=== PATIENT | female | born 1945 | race African-American/Black ===

== ENCOUNTER → 2017-02-03 | Outpatient (CLI) | payer MEDICARE ==
[~2017-02-03] MED LIST: OXYCODONE-ACETAMINOPHEN 5-325 MG TABLET ONE
--- NOTE | 2017-02-03 12:50 | RADIOLOGY REPORT (SQ) ---
EXAM DESCRIPTION: NM GASTRIC EMPTYING STUDY COMPLETED DATE/TIME: 02/03/2017 12:29 pm REASON FOR STUDY: DYSPEPSIA (R10.13) R10.13 EPIGASTRIC PAIN COMPARISON: None. RADIONUCLIDE AND DOSE: 2 millicuries Tc-99m Sulfur Colloid. The route of agent administration: Oral. TECHNIQUE: Serial images acquired to 4 hours with each image recorded over a 30 minute time frame. I mage intensity values plotted with respect to time with linear regression algorithm. LIMITATIONS: None. FINDINGS: Patient was observed for 4 hours. Gastric emptying at 30 minutes was 11.1 % Gastric emptying at 60 minutes was 22.3%. Gastric emptying at 90 minutes was 33.4%. Gastric emptying at 120 minutes was 44.5% Gastric emptying at 240 minutes was 89%. IMPRESSION: Mildly delayed gastric emptying. TECHNICAL DOCUMENTATION: JOB ID: [id number] [employer]- All Rights Reserved
== END ==
LOC: RAD 07:39
PROVIDERS: ATTEND Internal Medicine Gastroenterology
DX: R10.13 Epigastric pain (principal)
CPT/HCPCS: 78264; A9541

== ENCOUNTER 2018-02-14 06:36 | Emergency (ER) | payer MEDICARE ==
[2018-02-14 06:56] LABS: APPEARANCE,URINE CLEAR; BILIRUBIN,URINE NEGATIVE (NEGATIVE); COLOR,URINE STRAW; GLUCOSE, URINE >=500 mg/dL (NEGATIVE); KETONES,URINE 20 mg/dL (NEGATIVE); LEUKOCYTE ESTERASE,URINE NEGATIVE (NEGATIVE); NITRITE,URINE NEGATIVE (NEGATIVE); PROTEIN,URINE 30 mg/dL (NEGATIVE); URINE SPECIFIC GRAVITY 1.013; UROBILINOGEN,URINE NEGATIVE mg/dL (<2.0)
[2018-02-14 06:57] LABS: ABSOLUTE LYMPHOCYTES (AUTO) 1.2 10^3/uL (0.5-4.7); ABSOLUTE MONOCYTES (AUTO) 0.4 10^3/uL (0.1-1.4); ABSOLUTE NEUT (AUTO) 6.3 10^3/uL (1.7-8.2); BASOPHILS % (AUTO) 0.1 % (0-2); HEMATOCRIT 44.3 % (36.0-47.0); HEMOGLOBIN 14.3 g/dL (12.0-15.5); LYMPHOCYTES % (AUTO) 14.9 % (13-45); MEAN CORPUSCULAR HEMOGLOBIN 27.6 pg (27.0-33.4); MEAN CORPUSCULAR HGB CONC 32.4 g/dL (32.0-36.0); MEAN CORPUSCULAR VOLUME 85 fl (80-97); MONOCYTES % (AUTO) 4.6 % (3-13); PLATELET COUNT 190 10^3/uL (150-450); RED BLOOD COUNT 5.19 10^6/uL (3.72-5.28); RED CELL DISTRIBUTION WIDTH 15.3 % (11.5-14.0); SEGMENTED NEUTROPHILS % (AUTO) 80.4 % (42-78); TOTAL CELLS COUNTED % (AUTO) 100 %; WHITE BLOOD COUNT 7.8 10^3/uL (4.0-10.5)
[2018-02-14 07:21] LABS: ALANINE AMINOTRANSFERASE 26 U/L (9-52); ALBUMIN 4.5 g/dL (3.5-5.0); ALKALINE PHOSPHATASE 131 U/L (38-126); ANION GAP 15 (5-19); ASPARTATE AMINO TRANSFERASE 27 U/L (14-36); BILIRUBIN,DIRECT 0.2 mg/dL (0.0-0.4); BILIRUBIN,TOTAL 0.6 mg/dL (0.2-1.3); BLOOD UREA NITROGEN 21 mg/dL (7-20); CALCIUM 9.5 mg/dL (8.4-10.2); CARBON DIOXIDE 23 mmol/L (22-30); CHLORIDE 101 mmol/L (98-107); GLUCOSE 266 mg/dL (75-110); LIPASE 123.5 U/L (23-300); SODIUM 138.7 mmol/L (137-145); TOTAL PROTEIN 7.5 g/dL (6.3-8.2)
[2018-02-14] MEDS ORDERED: FENTANYL CITRATE INJ/PF 100 MCG/2 ML AMPUL IV ONE (07:23)
[2018-02-14] MEDS ORDERED: ONDANSETRON HCL INJ/PF 4 MG/2 ML SDV IV ONE (07:23)
--- NOTE | 2018-02-14 07:25 | ER Document Report ---
ED GI/ - General Chief Complaint: Abdominal Pain Stated Complaint: ABDOMINAL PAIN Time Seen by Provider: 02/14/18 07:07 Mode of Arrival: Ambulatory Information source: Patient Notes: Patient presents complaining of abdominal pain that started around 10 PM last night. Patient states the pain became more severe today and she started to have nausea and vomiting. Patient reports vomiting x3 times. Patient denies any fever or diarrhea. Patient does report some urinary frequency symptoms. Patient denies any recent illness cough shortness of breath or chest pain. TRAVEL OUTSIDE OF THE [place] IN LAST 30 DAYS: No - HPI Patient complains to provider of: Abdominal pain, Vomiting Onset: Yesterday Timing/Duration: Worse Quality of pain: Sharp Pain Level: 4 Location: Other - Generalized abdomen Vaginal bleeding (Compared to normal period): None Associated symptoms: Dysuria, Nausea, Vomiting. denies: Chest pain, Fever, Loss of appetite, Urinary hesitancy, Urinary frequency Exacerbated by: Denies Relieved by: Denies Similar symptoms previously: No Recently seen / treated by doctor: No - Related Data Allergies/Adverse Reactions: Penicillins Allergy (Unknown, Verified 02/14/18 07:04) Past Medical History - General Information source: Patient - Social History Smoking Status: Never Smoker Frequency of alcohol use: None Drug Abuse: None Lives with: Alone Family History: Reviewed & Not Pertinent Patient has suicidal ideation: No Patient has homicidal ideation: No - Past Medical History Cardiac Medical History: Reports: Hx Hypercholesterolemia, Hx Hypertension Endocrine Medical History: Reports: Hx Diabetes Mellitus Type 2 Renal/ Medical History: Denies: Hx Peritoneal Dialysis Past Surgical History: Reports: Hx Breast Surgery, Hx Hysterectomy Review of Systems - Review of Systems Constitutional: No symptoms reported. denies: Fever, Recent illness EENT: No symptoms reported Cardiovascular: No symptoms reported. denies: Chest pain, Dizziness Respiratory: No symptoms reported. denies: Cough, Short of breath Gastrointestinal: Abdominal pain, Nausea, Vomiting. denies: Diarrhea, Poor appetite Genitourinary: Dysuria. denies: Flank pain Female Genitourinary: No symptoms reported Musculoskeletal: No symptoms reported. denies: Back pain Skin: No symptoms reported Hematologic/Lymphatic: No symptoms reported Neurological/Psychological: No symptoms reported Physical Exam - Vital signs Vitals: Temp 97.6 F 02/14/18 06:40 - General General appearance: Alert In distress: Mild - HEENT Head: Normocephalic, Atraumatic Eyes: Normal Conjunctiva: Normal Nasal: Normal Mouth/Lips: Normal Mucous membranes: Normal Neck: Normal, Supple - Respiratory Respiratory status: No respiratory distress Chest status: Nontender Breath sounds: Normal. No: Rales, Rhonchi, Stridor, Wheezing Chest palpation: Normal - Cardiovascular Rhythm: Regular Heart sounds: S1 appreciated, S2 appreciated Murmur: No - Abdominal Inspection: Normal Distension: No distension Bowel sounds: Normal Tenderness: Tender - diffuse tenderness, Guarding Organomegaly: No organomegaly - Back Back: Normal, Nontender. No: CVA tenderness - Extremities General upper extremity: Normal inspection, Normal ROM General lower extremity: Normal inspection, Normal ROM - Neurological Neuro grossly intact: Yes Cognition: Normal [place] Coma Scale Eye Opening: Spontaneous [place] Coma Scale Verbal: Oriented [place] Coma Scale Motor: Obeys Commands [place] Coma Scale Total: 15 - Psychological Associated symptoms: Normal affect, Normal mood - Skin Skin Temperature: Warm Skin Moisture: Dry Skin Color: Normal Course - Re-evaluation Re-evalutation: 02/14/18 07:46 Patient presents with diffuse abdominal tenderness and vomiting. Patient does report last bowel movement was yesterday. Patient does not have an elevated white blood cell count although does have an elevated lactic acid. There is concerned about possible ischemic colitis, patient does not meet Sirs criteria at this time although fluid bolus will be initiated at this time pending. Patient with vomiting and unable to tolerate oral contrast at this time. Consulted with Dr. Lydia Barth who agrees with plan for CT scan of the abdomen pelvis with IV contrast only and advises giving 30 ml/kg bolus. 02/14/18 08:33 Patient reports pain is improved at this time and is not needing additional medications. 02/14/18 10:29 Patient reports that she is feeling better at this time and reports only mild pain although denies any need for additional pain medication. Patient does have a 5 mm stone at the UVJ junction on CT scan. Patient is to receive additional IV fluids and will have a repeat lactic acid test performed. 02/14/18 11:[address] Blackman and to review patient's CT images given large amount of stool and bowel gas noted on CT, no concern for acute obstruction at this time. 02/14/18 12:10 Patient resting comfortably and denies needing any pain medication at this time. Vital signs stable. Patient without any leukocytosis. No concern for sepsis at this time although patient does have a down trending elevated lactic acid. Patient's repeat lactic acid was drawn prior to her receiving her 30 mL/ kg fluid bolus. Patient does still have IV fluids infusing at this time. Consulted with Dr. Kimberly Barth who recommends repeating lactic acid after entire fluid bolus as infused 02/14/18 12:57 Patient without any complaints at this time. Patient updated regarding plan of care. IV fluid bolus of 30 mL's per cc has completely infused at this time. We will recheck a lactic acid. Patient tolerating oral fluids without emesis. 02/14/18 14:00 Patient's repeat lactic acid continues to be downtrending. Patient nontoxic in appearance with stable vital signs. No concern for sepsis at this time. Consulted with Dr. Kimberly Barth who is in agreement with discharge plan at this time. Patient does have a 5 mm calculus noted to the left UVJ, no concern for UTI with normal renal function. Patient given outpatient follow-up information on a urologist to follow-up with. Patient encouraged to return at any point for any new or worsening symptoms or persistent unmanageable pain. - Vital Signs Vital signs: Temp Pulse Resp BP Pulse Ox 98.3 F 88 18 180/88 H 100 02/14/18 15:15 02/14/18 15:15 02/14/18 15:15 02/14/18 15:15 02/14/18 15:15 - Laboratory Result Diagrams: 02/14/18 06:40 02/14/18 06:40 Laboratory results interpreted by me: 02/14/18 02/14/18 02/14/18 06:40 06:40 06:40 RDW 15.3 H Seg Neutrophils % 80.4 H BUN 21 H Glucose 266 H Lactic Acid 4.2 H Magnesium Alkaline Phosphatase 131 H Urine Protein Urine Glucose (UA) Urine Ketones Urine Blood 02/14/18 02/14/18 02/14/18 06:40 06:42 11:22 RDW Seg Neutrophils % BUN Glucose Lactic Acid 2.9 H Magnesium 1.5 L Alkaline Phosphatase Urine Protein 30 H Urine Glucose (UA) >=500 H Urine Ketones 20 H Urine Blood SMALL H 02/14/18 13:05 RDW Seg Neutrophils % BUN Glucose Lactic Acid 2.3 H Magnesium Alkaline Phosphatase Urine Protein Urine Glucose (UA) Urine Ketones Urine Blood - Diagnostic Test Radiology reviewed: Image reviewed, Reports reviewed Discharge - Discharge Clinical Impression: Ureteral stone Abdominal pain Qualifiers: Abdominal location: unspecified location Qualified Code(s): R10.9 - Unspecified abdominal pain Vomiting Qualifiers: Vomiting type: unspecified Vomiting Intractability: non-intractable Nausea presence: unspecified Qualified Code(s): R11.10 - Vomiting, unspecified Condition: Stable Disposition: HOME, SELF-CARE Instructions: Flomax ([facility]), Intravenous (IV) Fluids ([facility]), Kidney Stone ([facility]), Vomiting ([facility]) Additional Instructions: Return immediately for any new or worsening symptoms Followup with your primary care provider, call tomorrow to make a followup appointment Follow-up with a urologist for further evaluation, call [facility] [phone], Friday morning for a follow-up appointment. Return immediately for any worsening symptoms, persistent vomiting, fever, persistent or worsening pain or any concerning symptoms. Prescriptions: Hydrocodone/Acetaminophen [[place] 5-325 Tablet] 1 each PO Q6 PRN #12 tablet PRN Reason: Ondansetron HCl [Zofran 4 mg Tablet] 1 tab PO Q6 PRN #10 tablet PRN Reason: Tamsulosin HCl [Flomax 0.4 mg Cap.sr] 0.4 mg PO DAILY #7 cap.sr.24h Referrals: ESTUARDO MERCADO MD [NO LOCAL MD] - Follow up as needed
[2018-02-14] MEDS ORDERED: NORMAL SALINE 1000 ML 1,000 ML IV ONE ×2 (07:44→10:24)
[2018-02-14 07:59] LABS: CREATINE KINASE MB 0.62 ng/mL (<4.55)
[2018-02-14 08:03] LABS: TROPONIN I < 0.012 ng/mL
--- NOTE | 2018-02-14 09:35 | EKG REPORT ---
SEVERITY:- BORDERLINE ECG - SINUS RHYTHM LVH BY VOLTAGE BORDERLINE T ABNORMALITIES, INFERIOR LEADS : Confirmed by: Olga Acevedo MD 14-Feb-2018 09:34:51
--- NOTE | 2018-02-14 10:00 | RADIOLOGY REPORT (SQ) ---
EXAM DESCRIPTION: CT ABD/PELVIS WITH IV ONLY COMPLETED DATE/TIME: 02/14/2018 9:26 am REASON FOR STUDY: abd pain, vomiting, elevated lactic acid COMPARISON: None. TECHNIQUE: CT scan of the abdomen and pelvis performed using helical scanning technique with dynamic intravenous contrast injection. No oral contrast. Images reviewed with lung, soft tissue, and bone windows. Reconstructed coronal and sagittal MPR images reviewed. Delayed images for evaluation of the urinary system also acquired. All images stored on PACS. All CT scanners at this facility use dose modulation, iterative reconstruction, and/or weight based d osing when appropriate to reduce radiation dose to as low as reasonably achievable (ALARA). [facility]: Dose Right [facility]: CareDose [facility]: Dose Right [facility]: Teradose 4D [facility]: [employer] CONTRAST TYPE AND DOSE: contrast/concentration: Isovue 350.00 mg/ml; Total Contrast Delivered: 71.0 ml; Total Saline Delivered: 69.0 ml RENAL FUNCTION: BUN 21 creatinine 0.88. RADIATION DOSE: CT Rad equipment meets quality standard of care and radiation dose reduction techniq ues were employed. CTDIvol: 7.9 - 11.0 mGy. DLP: 944 mGy-cm.. LIMITATIONS: None. FINDINGS: LOWER CHEST: No significant findings. No nodules or infiltrates. LIVER: Normal size. No masses. No dilated ducts. SPLEEN: Normal size. No focal lesions. PANCREAS: No masses. No significant calcifications. No adjacent inflammation or peripancreatic fluid collections. Pancreatic duct not dilated. GALLBLADDER: No identified stones by CT criteria. No inflammatory changes to suggest cholecystitis. ADRENAL GLANDS: No significant masses or asymmetry. RIGHT KIDNEY AND URETER: No solid masses. No significant calcifications. No hydronephrosis or hyd roureter. LEFT KIDNEY AND URETER: No solid masses. 5 mm calcification at the ureteral vesicular junction. H ydronephrosis and hydroureter. Stranding in the perinephric soft tissues. AORTA AND VESSELS: No aneurysm. No dissection. Renal arteries, SMA, celiac without stenosis. RETROPERITONEUM: No retroperitoneal adenopathy, hemorrhage or masses. BOWEL AND PERITONEAL CAVITY: No masses or inflammatory changes. No free fluid or peritoneal masses. APPENDIX: Not visualized. PELVIS: No mass. No free fluid. Normal bladder. ABDOMINAL WALL: No masses. No hernias. BONES: No significant or acute findings. OTHER: No other significant finding. IMPRESSION: 1. OBSTRUCTIVE UROPATHY ON THE LEFT SIDE WITH HYDRONEPHROSIS AND HYDROURETER SECONDARY TO A 5 MM CALC ULUS IN THE DISTAL LEFT URETER AT THE URETERAL VESICULAR JUNCTION. 2. NO OTHER SIGNIFICANT OR ACUTE FINDING IN THE ABDOMEN OR PELVIS ON CT SCAN WITH IV CONTRAST. TECHNICAL DOCUMENTATION: JOB ID: [id number] Quality ID # [id number]: Final reports with documentation of one or more dose reduction techniques (e.g., Au tomated exposure control, adjustment of the mA and/or kV according to patient size, use of iterative reconstruction technique) 2010 [employer]- All Rights Reserved Reading location - IP/workstation name: [email or web address]
[2018-02-14] MEDS ORDERED: TAMSULOSIN HCL 0.4 MG CAP.SR.24H PO ONE (10:28)
[2018-02-14] MEDS ORDERED: MAGNESIUM OXIDE 400 MG TABLET PO ONE (10:30)
[2018-02-14] MEDS ORDERED: NORMAL SALINE 400 ML IV ONE (10:31)
[2018-02-14 15:21] VITALS: BP 180/88
== END 2018-02-14 15:15 | disposition home or self-care (01) ==
LOC: ER 06:36
DX: N20.1 Calculus of ureter (principal); R10.9 Unspecified abdominal pain; R11.10 Vomiting, unspecified; R30.0 Dysuria; E78.00 Pure hypercholesterolemia, unspecified; I10 Essential (primary) hypertension; E11.9 Type 2 diabetes mellitus without complications; Z88.0 Allergy status to penicillin
CPT/HCPCS: 93005; 99284; 96361; 96374; 96375; 36415; 87040; 87086; 82553; 82550; 83605 ×2; 83690; 83735; 85025; 80053; 81001; 84484; 74177; 93010; A9270 ×2; J3010; J2405; J7030; J7040